=== PATIENT | female | born 1950 | race Asian ===

== ENCOUNTER → 2020-11-09 | Outpatient (CLI) | payer MEDICARE, OTHER | END | disposition home or self-care (01) | LOC: RADPV 09:22 | PROVIDERS: ATTEND General Practice | DX: E04.1 Nontoxic single thyroid nodule (principal); E05.90 Thyrotoxicosis, unspecified without thyrotoxic crisis or storm | CPT/HCPCS: 76536 ==

== ENCOUNTER → 2021-07-30 | Outpatient (CLI) | payer MEDICARE, OTHER | END | disposition home or self-care (01) | LOC: RADMN 08:24 | PROVIDERS: ATTEND General Practice | DX: Z12.31 Encounter for screening mammogram for malignant neoplasm of breast (principal); Z13.820 Encounter for screening for osteoporosis; E04.1 Nontoxic single thyroid nodule; E03.9 Hypothyroidism, unspecified; M85.9 Disorder of bone density and structure, unspecified | CPT/HCPCS: 76536; 77080 ==

== ENCOUNTER → 2021-11-01 | Outpatient (CLI) | payer MEDICARE, OTHER | END | disposition home or self-care (01) | LOC: RADMN 12:45 | PROVIDERS: ATTEND General Practice | DX: I51.7 Cardiomegaly (principal); I70.0 Atherosclerosis of aorta; M47.9 Spondylosis, unspecified; R06.02 Shortness of breath; R05.9 Cough, unspecified | CPT/HCPCS: 71046 ==

== ENCOUNTER → 2021-11-05 | Outpatient (CLI) | payer MEDICARE, OTHER | END | disposition home or self-care (01) | LOC: RADMN 11:02 | PROVIDERS: ATTEND General Practice | DX: M47.814 Spondylosis without myelopathy or radiculopathy, thoracic region (principal); M47.816 Spondylosis without myelopathy or radiculopathy, lumbar region; M47.812 Spondylosis without myelopathy or radiculopathy, cervical region; M48.04 Spinal stenosis, thoracic region; M46.04 Spinal enthesopathy, thoracic region; R29.890 Loss of height; M46.06 Spinal enthesopathy, lumbar region; M43.8X6 Other specified deforming dorsopathies, lumbar region; M50.322 Other cervical disc degeneration at C5-C6 level | CPT/HCPCS: 72040; 72070; 72100 ==

== ENCOUNTER → 2022-09-16 | Outpatient (CLI) | payer MEDICARE, OTHER | END | disposition home or self-care (01) | LOC: RADPV 09:07 | PROVIDERS: ATTEND General Practice | DX: M47.817 Spondylosis without myelopathy or radiculopathy, lumbosacral region (principal); M43.17 Spondylolisthesis, lumbosacral region; E04.2 Nontoxic multinodular goiter; M47.814 Spondylosis without myelopathy or radiculopathy, thoracic region; M51.34 Other intervertebral disc degeneration, thoracic region; M50.321 Other cervical disc degeneration at C4-C5 level; M50.322 Other cervical disc degeneration at C5-C6 level; M50.323 Other cervical disc degeneration at C6-C7 level; M47.812 Spondylosis without myelopathy or radiculopathy, cervical region; M25.78 Osteophyte, vertebrae; M47.898 Other spondylosis, sacral and sacrococcygeal region; M54.50 Low back pain, unspecified | CPT/HCPCS: 72040; 72072; 72100; 76536 ==

== ENCOUNTER → 2023-02-10 | Outpatient (CLI) | payer MEDICARE, OTHER | END | disposition home or self-care (01) | LOC: RADMN 15:06 | PROVIDERS: ATTEND General Practice | DX: M48.02 Spinal stenosis, cervical region (principal); M19.031 Primary osteoarthritis, right wrist; M19.032 Primary osteoarthritis, left wrist; M47.814 Spondylosis without myelopathy or radiculopathy, thoracic region; M54.2 Cervicalgia; R20.2 Paresthesia of skin; M47.812 Spondylosis without myelopathy or radiculopathy, cervical region | CPT/HCPCS: 72040; 73110-TC ==

== ENCOUNTER → 2023-06-12 | Outpatient (CLI) | payer MEDICARE, OTHER | END | disposition home or self-care (01) | LOC: RADPV 08:49 | PROVIDERS: ATTEND General Practice | DX: E78.5 Hyperlipidemia, unspecified (principal); K76.89 Other specified diseases of liver | CPT/HCPCS: 76705 ==

== ENCOUNTER → 2023-09-11 | Outpatient (CLI) | payer MEDICARE, OTHER | END | disposition home or self-care (01) | LOC: RADMN 11:01 | PROVIDERS: ATTEND General Practice | DX: M25.572 Pain in left ankle and joints of left foot (principal); M25.472 Effusion, left ankle | CPT/HCPCS: 73600-TC; 73620-TC ==

== ENCOUNTER → 2023-11-09 | Outpatient (CLI) | payer MEDICARE, OTHER | END | disposition home or self-care (01) | LOC: RADPV 09:51 | PROVIDERS: ATTEND General Practice | DX: E04.1 Nontoxic single thyroid nodule (principal) | CPT/HCPCS: 76536 ==

== ENCOUNTER → 2024-01-18 | Outpatient (CLI) | payer MEDICARE, OTHER | END | disposition home or self-care (01) | LOC: RADMN 10:33 | PROVIDERS: ATTEND General Practice | DX: M47.12 Other spondylosis with myelopathy, cervical region (principal); M47.22 Other spondylosis with radiculopathy, cervical region; M48.02 Spinal stenosis, cervical region; M25.78 Osteophyte, vertebrae; M75.31 Calcific tendinitis of right shoulder; M19.011 Primary osteoarthritis, right shoulder; M19.012 Primary osteoarthritis, left shoulder | CPT/HCPCS: 72040; 73030-TC ==